=== PATIENT | male | born 1970 | race Caucasian/White ===

== ENCOUNTER 2019-02-23 07:45 | Day surgery (SDC) | payer BC, OTHER ==
[~2019-02-23 07:45] MED LIST: PROPOFOL INJ 200 MG/20 ML VIAL IV ONE
[2019-02-23 09:31] VITALS: BP 150/98
--- NOTE | 2019-02-23 13:22 | Operative Report ---
Operative Report DATE OF SURGERY: 02/23/19 Operative Report: The risks, benefits and alternatives of the procedure including risk of bleeding, perforation requiring surgery have been explained to the patient in detail and informed consent has been obtained. Patient is placed in a left, lateral decubital position. Timeout was called. Propofol medication is administered. Rectal examination is done which did not reveal any masses, tears or fissures. An Olympus videoscope was introduced into the patient's rectum. The scope was then carefully advanced all the way to the cecum. The cecum was identified by the usual anatomical landmarks including the ileocecal valve as well as the appendiceal office. Photodocumentation is obtained. The scope was then sequentially pulled back via the various segments of the colon including the ascending colon, hepatic flexure, transverse colon, splenic flexure, descending colon and finally into the rectosigmoid portions of the colon. Retroflexion maneuvers performed. PREOPERATIVE DIAGNOSIS: History of diverticulosis, left lower quadrant pain POSTOPERATIVE DIAGNOSIS: Diverticulosis. Inflammation noted on the left side of the colon. Biopsies to rule out ischemic colitis. Internal hemorrhoids OPERATION: Colonoscopy with biopsy SURGEON: DOMINIQUE MEADE ANESTHESIA: LMAC TISSUE REMOVED OR ALTERED: As noted above. COMPLICATIONS: None. ESTIMATED BLOOD LOSS: None. INTRAOPERATIVE FINDINGS: As noted above. PROCEDURE: Patient tolerated the procedure well. No immediate postprocedure complications are noted. Patient is discharged in good condition. Discharge date 02/23/2019. Discharge diet: Regular. Discharge activity: Regular. 2 to 3-week follow-up to discuss findings. Patient is instructed to call the office or proceed to the emergency room should there be any further problems or questions. We will restart antibiotic therapy for history of diverticulitis Wait on the pathology.
== END 2019-02-23 09:18 | disposition home or self-care (01) ==
LOC: END 07:45
PROVIDERS: ATTEND Internal Medicine Gastroenterology
DX: K57.30 Diverticulosis of large intestine without perforation or abscess without bleeding (principal); K52.9 Noninfective gastroenteritis and colitis, unspecified; K64.8 Other hemorrhoids; I10 Essential (primary) hypertension; M10.9 Gout, unspecified; J45.909 Unspecified asthma, uncomplicated; Z79.51 Long term (current) use of inhaled steroids; Z79.899 Other long term (current) drug therapy; Z88.5 Allergy status to narcotic agent; Z88.0 Allergy status to penicillin; Z13.89 Encounter for screening for other disorder
CPT/HCPCS: 45380; 88305 ×2; 00811; J2704; 811

== ENCOUNTER 2019-10-28 05:37 | Day surgery (SDC) | payer BC ==
[2019-10-21 09:35] LABS: HEMOGLOBIN 15.5 g/dL (13.5-17.0); MEAN CORPUSCULAR VOLUME 89 fl (80-97); PLATELET COUNT 337 10^3/uL (150-450); RED BLOOD COUNT 4.84 10^6/uL (4.35-5.55); RED CELL DISTRIBUTION WIDTH 13.7 % (11.5-14.0); WHITE BLOOD COUNT 8.5 10^3/uL (4.0-10.5)
--- NOTE | 2019-10-21 22:39 | EKG REPORT ---
SEVERITY:- NORMAL ECG - SINUS RHYTHM : Confirmed by: Kevin Lilly 21-Oct-2019 22:38:31
[~2019-10-28 05:37] MED LIST changes: +ACETAMINOPHEN 325 MG TABLET PO PRN; +CLINDAMYCIN 600 MG/D5W RTU 600 MG/50 ML RTUPB IV ONE; +CLINDAMYCIN 600 MG/D5W RTU 600 MG/50 ML RTUPB IV PRN; +LACTATED RINGERS 1000 ML IV PRN; +LIDOCAINE 0.5% INJ-PF (5 MG/ML) 50 ML SDV SUBCUT PRN; -PROPOFOL INJ 200 MG/20 ML VIAL IV ONE
[2019-10-28] MEDS ORDERED: FENTANYL CITRATE INJ/PF 250 MCG/5 ML AMPULE ONE (07:02)
[2019-10-28] MEDS ORDERED: MIDAZOLAM 2 MG/2 ML INJ ONE (07:02)
[2019-10-28] MEDS ORDERED: EPHEDRINE SULFATE INJ 50 MG/1 ML AMPULE ONE (07:02)
[2019-10-28] MEDS ORDERED: PROPOFOL INJ 200 MG/20 ML VIAL IV ONE (07:03)
[2019-10-28] MEDS ORDERED: BUPIVACAINE HCL 0.25 % INJ/PF (2.5 MG/1 ML) 30 ML VIAL ONE (07:06)
[2019-10-28] MEDS ORDERED: BUPIVACAINE HCL 0.25 % INJ/PF (2.5 MG/1 ML) 30 ML VIAL INJ ONE ×2 (07:44)
[2019-10-28] MEDS ORDERED: PROMETHAZINE HCL INJ 25 MG/1 ML VIAL IV PRN ×2 (07:58)
[2019-10-28] MEDS ORDERED: DIPHENHYDRAMINE HCL 50 MG/ML VIAL IV PRN (07:58)
[2019-10-28] MEDS ORDERED: FENTANYL CITRATE INJ/PF 100 MCG/2 ML AMPUL IV PRN ×3 (07:58)
[2019-10-28] MEDS ORDERED: OXYCODONE-ACETAMINOPHEN 5-325 MG TABLET PO PRN ×2 (07:58)
[2019-10-28] MEDS ORDERED: MEPERIDINE HCL/PF INJ 25 MG/1 ML DISP.SYRIN IV PRN (07:58)
--- NOTE | 2019-10-28 08:54 | Discharge Summary ---
Discharge Summary (SDC) - Discharge Final Diagnosis: Small abdominal wall hernias Date of Surgery: 10/28/19 Discharge Date: 10/28/19 Condition: Good Treatment or Instructions: Wear abdominal binder at all times while; may shower; return to [place] [facility] in 2 weeks for follow-up appointment. Prescription on chart. Referrals: SAAD YOUNG PA-C [Primary Care Provider] - Discharge Diet: As Tolerated Discharge Activity: Activity As Tolerated Home Care Assistance: None Needed Report the Following to Your Physician Immediately: Shortness of Breath, Increase in Pain, Fever over 101 Degrees
--- NOTE | 2019-10-28 09:03 | Operative Report ---
Operative Report DATE OF SURGERY: 10/28/19 PREOPERATIVE DIAGNOSIS: 1. Umbilical hernia, partially incarcerated. 2. Obes ity. 3. Asthma POSTOPERATIVE DIAGNOSIS: Same with. Multiple ventral wall hernias OPERATION: 1. Laparoscopic ventral herniorrhaphy using ventralight ST mesh 10 x 15 cm BARD product. 2. Reduction of incarcerated omentum. 3. Primary closure of multiple fascial defects of the anterior abdominal wall SURGEON: GANESH RUDD ANESTHESIA: GA TISSUE REMOVED OR ALTERED: None COMPLICATIONS: None ESTIMATED BLOOD LOSS: Scant INTRAOPERATIVE FINDINGS: See below PROCEDURE: Patient was taken the preop holding her to the main operating room where general anesthesia was induced. The abdomen was clipped of hair, then prepped and draped with Betadine. Incision consisted of a laparoscopic abdominal wall surgery Surgical plan and surgical timeout were conducted. Markings were made on the skin for 3 port laparoscopy. The sites were anesthetized 1% plain lidocaine. A left upper quadrant stab was made with a knife, Veress needle inserted the peritoneal cavity pneumoperitoneum was established. The Veress needle was removed, 5 mm ports inserted 5 mm flexible scope was inserted. Under direct visualization 2 additional 5 mm ports were inserted one in the left lower quadrant one in the right mid field Findings were significant for a 2 cm umbilical hernia defect, and omentum stuck to the anterior abdominal wall in the midline. We now proceeded to remove the incarcerated omental projections that were stuck in 2 small hernias cephalad to the primary umbilical hernia. This was performed using a combination of blunt, electrocautery dissection. We checked for bleeding from the omentum and this was controlled with clips and cautery. I took down the falciform ligament between clips, and electrocautery. We now had the anterior abdominal wall distantly exposed. Typically the length of the hernia is extended over a distance of approximately 6 cm. Therefore we brought onto the field a 15 x 10 cm oblong shaped ventral light ST mesh, check for expiration, and placed it onto the field. It was marked at the 12, 3, 6, and 9:00 positions, and 0 PDS suture was placed at the respective sites. The mesh was moistened, rolled, brought through the intra-abdominal wall at the right mid port site incision. The mesh was unfolded within the peritoneum, and brought up to the anterior abdominal wall using the disposable suture passer at the 12, 3, 6, 9:00 posit ions respectively. The sutures were tightened and not secured with the pneumoperitoneum decompressed. We now came around with approximately 28 sure tack tuyet and secured the mesh in circumferential fashion, 2 rows. Final photos were taken. We were satisfied with the operative repair. Extracorporeally all redundant PDS sutures were clipped. All wounds closed with 3-0 Vicryl benzoin and Steri-Strips. Patient tolerated procedure well, had an abdominal binder placed, and taken recovery room stable condition.
[2019-10-28] MEDS ORDERED: LABETALOL HCL INJ 20 MG/4 ML DISP.SYRIN IV ONE (09:19)
[2019-10-28] MEDS ORDERED: NALOXONE HCL INJ/PF 0.4 MG/1 ML SDV ONE (09:19)
[2019-10-28] MEDS: FENTANYL CITRATE INJ/PF 100 MCG/2 ML AMPUL ONE ×2 (09:20→09:30)
[2019-10-28] MEDS ORDERED: IPRATROPIUM/ALBUTEROL 0.5-2.5 MG/3 ML AMPUL NEB ONE ×2 (10:12→11:00)
[2019-10-28] MEDS ORDERED: KETOROLAC TROMETHAMINE INJ/PF 30 MG/1 ML SDV ONE (10:54)
[2019-10-28] MEDS ORDERED: SCOPOLAMINE HYDROBROMIDE 1.5 MG PATCH.TD72 TD ONE (11:00)
[2019-10-28 12:24] VITALS: BP 124/86
[2019-10-28] MEDS ORDERED: GLYCOPYRROLATE 1 MG/5 ML VIAL ONE (12:38)
[2019-10-28] MEDS ORDERED: LIDOCAINE 2% INJ-PF (20 MG/ML) 2 ML AMPUL ONE (12:38)
[2019-10-28] MEDS ORDERED: SUCCINYLCHOLINE CHLORIDE INJ 200 MG/10 ML VIAL ONE (12:38)
[2019-10-28] MEDS ORDERED: DEXAMETHASONE SOD PHOSPHATE INJ 4 MG/1 ML VIAL ONE (12:38)
[2019-10-28] MEDS ORDERED: ROCURONIUM BROMIDE INJ 50 MG/5 ML VIAL IV ONE (12:38)
[2019-10-28] MEDS ORDERED: ONDANSETRON HCL INJ/PF 4 MG/2 ML SDV ONE (12:38)
[2019-10-28] MEDS ORDERED: NEOSTIGMINE METHYLSULFATE 10 MG/10 ML VIAL ONE (12:38)
== END 2019-10-28 11:45 | disposition home or self-care (01) ==
LOC: OROUT 05:37
PROVIDERS: ATTEND Surgery
DX: K42.9 Umbilical hernia without obstruction or gangrene (principal); K43.6 Other and unspecified ventral hernia with obstruction, without gangrene; J45.909 Unspecified asthma, uncomplicated; E78.00 Pure hypercholesterolemia, unspecified; Z88.0 Allergy status to penicillin; Z88.5 Allergy status to narcotic agent; Z79.51 Long term (current) use of inhaled steroids; Z79.899 Other long term (current) drug therapy
CPT/HCPCS: 93005; 36415; 84132; 85027; 93010; 00790; 49653; C1781; C1713; J2250; J3490 ×5; J1100; J3010 ×2; J1885; J2310; J2710; J0330; J2405; J2704; J7620; 790

== ENCOUNTER → 2020-03-15 | Outpatient (CLI) | payer BC ==
[2020-03-15 08:45] LABS: ABSOLUTE BASOPHILS # (AUTO) 0.1 10^3/uL (0.0-0.2); ABSOLUTE EOSINOPHILS # (AUTO) 0.3 10^3/uL (0.0-0.6); ABSOLUTE LYMPHOCYTES (AUTO) 1.6 10^3/uL (0.5-4.7); ABSOLUTE MONOCYTES (AUTO) 0.9 10^3/uL (0.1-1.4); ABSOLUTE NEUT (AUTO) 5.1 10^3/uL (1.7-8.2); BASOPHILS % (AUTO) 0.7 % (0-2); EOSINOPHILS % (AUTO) 3.7 % (0-6); HEMATOCRIT 43.7 % (37.9-51.0); HEMOGLOBIN 15.5 g/dL (13.5-17.0); LYMPHOCYTES % (AUTO) 20.4 % (13-45); MEAN CORPUSCULAR HEMOGLOBIN 32.2 pg (27.0-33.4); MEAN CORPUSCULAR HGB CONC 35.4 g/dL (32.0-36.0); MEAN CORPUSCULAR VOLUME 91 fl (80-97); MONOCYTES % (AUTO) 10.8 % (3-13); PLATELET COUNT 305 10^3/uL (150-450); RED BLOOD COUNT 4.81 10^6/uL (4.35-5.55); RED CELL DISTRIBUTION WIDTH 13.5 % (11.5-14.0); SEGMENTED NEUTROPHILS % (AUTO) 64.4 % (42-78); TOTAL CELLS COUNTED % (AUTO) 100 %; WHITE BLOOD COUNT 7.9 10^3/uL (4.0-10.5)
[2020-03-17 10:37] LABS: F002-IGE MILK (COW) <0.10 kU/L (Class 0); F004-IGE WHEAT <0.10 kU/L (Class 0); F008-IGE CORN <0.10 kU/L (Class 0); F013-IGE PEANUT <0.10 kU/L (Class 0); F014-IGE SOYBEAN <0.10 kU/L (Class 0); F026-IGE PORK <0.10 kU/L (Class 0); F027-IGE BEEF <0.10 kU/L (Class 0); F245-IGE EGG WHOLE <0.10 kU/L (Class 0)
[2020-03-17 11:13] LABS: F052-IGE CHOCOLATE/COCOA <0.10 kU/L (Class 0)
== END ==
LOC: OD 07:50
PROVIDERS: ATTEND Internal Medicine Pulmonary Disease
DX: J45.909 Unspecified asthma, uncomplicated (principal)
CPT/HCPCS: 36415; 82785; 85025; 86003

== ENCOUNTER → 2020-06-16 | Outpatient (CLI) | payer BC ==
[2020-06-16 09:08] LABS: ABSOLUTE BASOPHILS # (AUTO) 0.1 10^3/uL (0.0-0.2); ABSOLUTE EOSINOPHILS # (AUTO) 0.3 10^3/uL (0.0-0.6); ABSOLUTE LYMPHOCYTES (AUTO) 1.7 10^3/uL (0.5-4.7); ABSOLUTE MONOCYTES (AUTO) 0.7 10^3/uL (0.1-1.4); ABSOLUTE NEUT (AUTO) 3.7 10^3/uL (1.7-8.2); BASOPHILS % (AUTO) 0.9 % (0-2); EOSINOPHILS % (AUTO) 4.6 % (0-6); HEMATOCRIT 43.2 % (37.9-51.0); HEMOGLOBIN 15.8 g/dL (13.5-17.0); LYMPHOCYTES % (AUTO) 26.3 % (13-45); MEAN CORPUSCULAR HEMOGLOBIN 33.1 pg (27.0-33.4); MEAN CORPUSCULAR HGB CONC 36.6 g/dL (32.0-36.0); MEAN CORPUSCULAR VOLUME 90 fl (80-97); MONOCYTES % (AUTO) 10.9 % (3-13); PLATELET COUNT 352 10^3/uL (150-450); RED BLOOD COUNT 4.78 10^6/uL (4.35-5.55); RED CELL DISTRIBUTION WIDTH 13.2 % (11.5-14.0); SEGMENTED NEUTROPHILS % (AUTO) 57.3 % (42-78); TOTAL CELLS COUNTED % (AUTO) 100 %; WHITE BLOOD COUNT 6.5 10^3/uL (4.0-10.5)
== END ==
LOC: OD 07:58
PROVIDERS: ATTEND Internal Medicine Pulmonary Disease
DX: J45.909 Unspecified asthma, uncomplicated (principal)
CPT/HCPCS: 36415; 82785; 85025

== ENCOUNTER → 2020-08-18 | Outpatient (CLI) | payer BC ==
--- NOTE | 2020-08-18 09:27 | RADIOLOGY REPORT (SQ) ---
EXAM DESCRIPTION: COOKIE SWALLOW IMAGES COMPLETED DATE/TIME: 08/18/2020 8:24 am REASON FOR STUDY: CHRONIC COUGH R05 COUGH COMPARISON: None. TECHNIQUE: Videofluoroscopic swallowing examination was performed in conjunction with speech patholo gy. Videofluoroscopic imaging was obtained and reviewed and these are the findings: RADIATION DOSE: Fluoro time 1.7 minutes 1 images saved to PACS. LIMITATIONS: None FINDINGS: The patient was brought into the fluoro room and placed upright on a modified barium swall ow chair. The patient was then given multiple consistencies mixed with barium to swallow under live fluoroscopic video guidance. According to the Speech Pathologist there was flash laryngeal penetrati on seen with thin barium. All other consistencies were swallowed without incident. No aspiration id entified. Please refer to the speech pathology report for further details. IMPRESSION: FLASH LARYNGEAL PENETRATION, WITHOUT ASPIRATION, SEEN WITH THIN BARIUM. PLEASE SEE [facility] PATH[facility]IST REPORT FOR OTHER FINDINGS AND RECOMMENDATIONS. COMMENT: None Quality ID [id number]: Final reports for procedures using fluoroscopy that document radiation exposure ross raphael, or exposure time and number of fluorographic images (if radiation exposure indices are not avail able) TECHNICAL DOCUMENTATION: JOB ID: [id number] 2010 [employer]- All Rights Reserved Reading location - IP/workstation name: [email or web address] [id number]
--- NOTE | 2020-08-18 16:17 | ST Modified Barium Swallow ---
Recommendation - Recommendations Recommendations: Recommend barium swallow for further assessment, as symptoms appear to be related to GI issues. No oral or pharyngeal deficits seen. Medical Diagnoses - Medical Diagnoses Medical Diagnosis Description & ICD-10 Code(s): R05, cough; R13.10, dysphagia Other Medical Diagnoses/Co-Morbidities: per sapna report: asthma, reflux, diverticulitis ST Modified Barium Swallow - General Date: 08/18/20 Referring Physician: Dr. Richmond Risks/Precautions: None Date of Onset: 08/08/20 - date of physician note Reason for Referral: cough - History History obtained from: Patient - Patient attended independently and acted as his own historian. He does not report any known swallowing difficulties. -: Medical - Patient has chronic cough, referred by product analyst. No recent pneumonia or bronchitis. Medications: per patient report: mucinex, tizanidine, proair, albuterol, singulair, flonase, doxycycline, cleocin, neurontin, lipitor, esomeprazole, spiriva, celecoxib, hydrochlorothiazide, tylenol Allergies: penicillin, morphine - Functional Status Prior Functional Status: INDEPENDENT: feeding - independent Current Functional Limitations: feeding - chronic cough - Subjective Cognitive-Linguistic Function: WNL Speech Intelligibility: WNL Current Nutritional Means: PO Current PO diet: Regular Current symptoms: Coughing Pain: Patient reports, 0/5 - Objective Assessment: Upright, Left Lateral - Food Trials Used Food trials used: Thin liquids, Pureed, Regular The patient: Was Able to Self Feed - Oral-Motor Skills Dentition: Full Velo-pharyngeal function: Unremarkable Laryngeal Function: clear voicing - Assessment Oral prep: Normal Labial closure: Adequate Leakage: None Mastication: Adequate Lingual Movement: Normal Oral stage: Normal for this Procedure - Pharyngeal Stage Initiation of Pharyngeal Stage Reflex: Normal Decreased laryngeal elevation: No Reduced Velopharyngeal Closure: no Reduced pressure generation: No reduced tongue-based retraction: No Pre-swallow pooling in valleculae: None Pre-Swallow pooling in pyriforms: None Reduced Thyro-Hyoid approximation: No Reduced epiglottic excursion: No Reduced pharyngeal peristalsis/contraction: No Post-swallow residulas vallecular: None Post-Swallow residuals in pyriforms: None Reduced Cricopharyngeal opening: No - Fall Risk Assessment Medications/Conditions that increase fall risks include: Antidepressants, sedatives, anti-arrhythmic, diuretic, benzodiazipenes, neuroleptics. BP regulation problems, cardiac problems, balance or gait deficits, neurological problems. Is patient considered at risk for falls: no Fall Risk Actions Taken: No action needed - Behavioral Observations During evaluation process patient: able to answer questions, provided medical history - Treatment / Educational Needs: Treatment/Education Needs: Treatment consisted of patient education on the role of the Speech Pathologist. Patient's plan of care and golas were communicated as well as scheduling and attendance policies. Recommendations for initial home program were shared. Patient demonstrated understanding and verbalized agreement. - Impression/Summary Laryngeal Penetration: Yes - flash with thin liquids, WNL Tracheal Aspiration: no Patient presents with: Normal swallow at eval Risk of Aspiration: Minimal - Recommendations Solid diet recommendations: Regular Liquid Diet Modification: Thin Dysphagia therapy with COURTROOM CLERK: no Reflux Precautions: Taught to Patient Information, Precautions and Recommendations: Patient (Written), Patient (Verbal) - Time Total Time: 30 - Plan of Care Strategies to optimize patient understanding include:: ongoing assessment of educational needs, implementation of educational strategies, and re-education. - - -: Thank you for the opportunity to work with this patient and his/her family. Should you have any questions about this patient's plan or progress, I can be reached at [phone].
== END ==
LOC: RAD 07:45
PROVIDERS: ATTEND Internal Medicine Pulmonary Disease
DX: R05 Cough (principal)
CPT/HCPCS: 74230

== ENCOUNTER → 2020-08-24 | Outpatient (CLI) | payer BC ==
--- NOTE | 2020-08-24 09:38 | RADIOLOGY REPORT (SQ) ---
EXAM DESCRIPTION: BARIUM SWALLOW ESOPHAGUS IMAGES COMPLETED DATE/TIME: 08/24/2020 9:00 am REASON FOR STUDY: CHRONIC COUGH R05 COUGH COMPARISON: None. TECHNIQUE: Under fluoroscopic guidance, patient ingested effervescent granules followed by thick and thin barium. Fluoroscopic spot images and routine radiographic images acquired and stored on PACS. 12 MM BARIUM TABLET GIVEN: Yes. No significant delay in passage. LIMITATIONS: None. FLUOROSCOPY TIME: FLUORO TIME: 1.7 MINUTES OF FLUOROSCOPY WAS USED. 14 images saved to PACS. FINDINGS: NEUROMUSCULAR COORDINATION OF SWALLOW: Normal. No aspiration. ESOPHAGEAL MOTILITY: Mild esophageal dysmotility. No esophageal spasm. ESOPHAGEAL MUCOSA: Normal mucosa without masses or ulceration. GASTRO-ESOPHAGEAL JUNCTION: Small sliding hiatal hernia with mild gastroesophageal reflux. NON-GI TRACT STRUCTURES: No significant finding. OTHER: No other significant finding. IMPRESSION: 1. MILD ESOPHAGEAL DYSMOTILITY. 2. SMALL SLIDING HIATAL HERNIA WITH MILD GASTROESOPHAGEAL REFLUX COMMENT: Quality ID 145: Final reports for procedures using fluoroscopy that document radiation exp osure indices, or exposure time and number of fluorographic images (if radiation exposure indices are not available) TECHNICAL DOCUMENTATION: JOB ID: [id number] 2010 [employer]- All Rights Reserved Reading location - IP/workstation name: [email or web address] [id number]
== END ==
LOC: RAD 08:24
PROVIDERS: ATTEND Internal Medicine Pulmonary Disease
DX: K21.9 Gastro-esophageal reflux disease without esophagitis (principal); K44.9 Diaphragmatic hernia without obstruction or gangrene; R05 Cough
CPT/HCPCS: 74220